=== PATIENT | female | born 1980 | race Caucasian/White ===

== ENCOUNTER 2020-04-30 18:20 | Emergency (ER) | payer MEDICAID, SELFPAY ==
[2020-04-30 18:34] VITALS: BP 162/105; PULSE 102; RESP 16; TEMP 37; O2SAT 97
--- NOTE | 2020-04-30 18:45 | DI.RAD_ITS ---
EXAM: XR WRIST LT COMPLETE CLINICAL HISTORY: Pain, swelling, atraumatic TECHNIQUE: COMPARISON: No exams were available for comparison FINDINGS: Three views were obtained. There may be mild subluxation the 1st metacarpal base from the greater mu ltangular, please correlate clinically. No evidence of fracture. IMPRESSION: RADIATION DOSE DELIVERED: Total DLP
--- NOTE | 2020-04-30 18:45 | DI.RAD_ITS ---
EXAM: XR HAND LT COMPLETE CLINICAL HISTORY: Pain, swelling, atraumatic TECHNIQUE: COMPARISON: No exams were available for comparison FINDINGS: Three views were obtained. With there is question of a mildly subluxed 1st metacarpal at the greater multangular 1st metacarpal joint, please correlate regarding any prior ligamentous injury. No acute fracture seen. IMPRESSION: RADIATION DOSE DELIVERED: Total DLP
--- NOTE | 2020-04-30 18:56 | W.ED.GENAD ---
Discharge Plan Disposition Patient Disposition: HOME Condition: Stable Discharge Details Clinical Impression: Hand pain, left Primary Care Provider: Esvin Kowalski ED Provider: Alhaji Hoffman Home Meds and New Rx's Prescriptions: New cephalexin [Keflex] 250 mg capsule 250 mg PO QID 10 Days Qty: 40 RF: 0 naproxen [Naprosyn] 500 mg tablet 500 mg PO BID PRN10 Days RF: 0 Continued fluoxetine [Prozac Weekly] 90 MG capsule,delayed release(DR/EC) 90 mg PO DIRECTED RF: 0 Discharge Instructions Additional Instructions: Your x-rays were unremarkable, your inflammatory markers were slightly elevated. It is unclear exactly what is causing your symptoms and therefore very close outpatient follow-up is necessary. Wear splint until reevaluation with orthopedics. Rest, elevate, cool and/or warm compresses every 2 hours for 20 minutes. Keflex and Naprosyn as directed. Please watch for new or worsening symptoms and return to the ER for any concerns. I personally spoke with our orthopedic provider bus transportation manager, we discussed your case, and came up with this discharge plan together. He is going to personally call you tomorrow to check in and discuss further treatment and care. Referrals: Yariel Mckeon MD [ [facility] STAFF PHYSICIAN] - Medical Decision Making This is a 39-year-old female who is right-hand dominant presenting with left hand pain and swelling. This is an interesting presentation as there is no injury, no break in the skin, and no real change in her daily activities. She is afebrile, denies rash anywhere else on her body, no other joint involvement. Clinically this certainly could be a tendinitis however diagnosis of compartment syndrome, tenosynovitis, septic joint, necrotizing fasciitis, etc. are all on the differential. I do believe that they are likely lower in suspicion given the presentation of nearly 6 days, being afebrile, and no obvious cellulitis. I did discuss the case with Dr. Dykes. Will obtain CBC, CRP, x-ray of wrist and hand, sed rate, CRP. Initial work-up reveals a white count that is slightly elevated at 11.38. Absolute neutrophils 7.15. ESR 38, CRP 2.7. X-ray of left hand and wrist read by virtual radiology as ligamentous laxity base of thumb, uncertain chronicity. Apparent laxity first CMC articulation. Dislocation not excludable. Clinical correlation requested. Discussed the case with Dr. Mckeon. We discussed her case and work-up. Mild nonspecific leukocytosis, elevated inflammatory markers. We discussed x-ray findings and he felt as though given her profession, this is likely baseline given. He felt as though given the duration of her symptoms diagnosis of necrotizing fasciitis, compartment syndrome, general synovitis, are very unlikely. He questions diagnosis of neuritis. His recommendations at this time are to initiate IV antibiotics such as Ancef, IV Toradol, sent home with prescription of p.o. Keflex and an NSAID. He recommends splinting, volar neutral position and I will CC him on this note, he will contact the patient personally tomorrow. Patient given IV Toradol and Ancef. Upon reevaluation she reports that her pain went from an 8 down to a 4 out of 5 with the Toradol. Using 3 inch Ortho-Glass, I placed the patient in a volar neutral position splint. She tolerated well and reports that this feels very comfortable. She remains neuro, vascular, tendon intact status post splint application as examined by me. We discussed signs and symptoms of diagnosis such as compartment syndrome, necrotizing fasciitis, gingivitis, etc. and the importance of returning immediately to the ER. Otherwise she will await the phone call tomorrow and follow the instructions given by Dr. Mckeon. Upon discharge patient has no additional questions or concerns. Lab Data Lab results reviewed: Yes I reviewed the patient's lab results. Lab results narrative: Laboratory Tests Range/Units 04/30/20 04/30/20 19:06 19:06 WBC (4.4-10.8) 10^3/uL 11.38 H RBC (3.93-5.22) 10^6/uL 4.39 Hgb (11.2-15.7) g/dL 13.7 Hct (36.0-46.0) % 41.1 MCV (80-95) fL 93.6 MCH (27.0-33.0) pg 31.2 MCHC (32.0-36.0) % 33.3 RDW (11.7-14.6) % 12.3 Plt Count (130-400) 10^3/uL 246 MPV (8.0-11.0) fL 10.7 Immature Gran % 0.3 Neutrophils % 62.8 Lymphocytes % 24.4 Monocytes % 9.1 Eosinophils % 2.9 Basophils % 0.5 Nucleated RBC % % 0 Absolute Neutrophils (1.2-6.7) 10^3/uL 7.15 H Absolute Lymphocytes (1.2-3.4) 10^3/uL 2.78 Absolute Monocytes (0.1-0.8) 10^3/uL 1.04 H Absolute Eosinophils (0.0-0.7) 10^3/uL 0.33 Absolute Basophils (0.0-0.2) 10^3/uL 0.06 ESR (0-20) mm/hr 38 H Sodium (136-145) mmol/L 138 Potassium (3.5-5.1) mmol/L 3.3 L Chloride (98-107) mmol/L 102 Carbon Dioxide (21.0-32.0) mmol/L 27.1 Anion Gap (3-11) mmol/L 8.9 BUN (7-18) mg/dL 11 Creatinine (0.55-1.02) mg/dL 0.70 Estimated GFR/1.73 m2 (mL/min/1.73m2) >= 60.00 Glucose (74-106) mg/dL 98 Calcium (8.5-10.1) mg/dL 8.9 Total Bilirubin (0.2-1.0) mg/dL 0.4 AST (15-37) U/L 29 ALT (14-59) U/L 53 Alkaline Phosphatase (46-116) U/L 79 C-Reactive Protein (0.0-0.3) mg/dL 2.71 H Total Protein (6.4-8.2) g/dL 7.7 Albumin (3.4-5.0) g/dL 3.6 HPI General Mode of arrival: ambulatory. Date/Time Provider Initiated Documentation: 04/30/20 18:31. Limitations to Documentation: no limitations. Information obtained by: patient. HPI Narrative: This is a 39-year-old female who denies any significant past medical history, [id number], presenting with left hand pain and swelling that began 6 days ago. Patient states that this has been atraumatic. 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 She denies fever, rash, joint pain elsewhere on her body. She has had a cyst on the back of her hand for a couple of years but this is not painful. She reports tingling but no numbness. The pain began on Sunday, began to resolve over the next couple of days, but has significantly worsened over the past 24 hours. Now her fingers are held in flexion and she cannot fully extend them. She has never had anything like this happen before. Related Data Home Medications Medication Instructions Recorded Confirmed fluoxetine [Prozac Weekly] 90 mg PO DIRECTED 03/27/15 04/30/20 cephalexin [Keflex] 250 mg PO QID 10 Days #40 cap 04/30/20 naproxen [Naprosyn] 500 mg PO BID PRN 10 Days tab 04/30/20 Previous Rx's Medication Instructions Recorded cephalexin [Keflex] 250 mg PO QID 10 Days #40 cap 04/30/20 naproxen [Naprosyn] 500 mg PO BID PRN 10 Days tab 04/30/20 Allergies Allergy/AdvReac Type Severity Reaction Status Date / Time No Known Allergies Allergy Unverified 04/30/20 18:37 General Stated Complaint: Orthopedic BRAN: 3 Review of Systems Constitutional Constitutional: Denies fatigue, Denies fever(s) and Denies weakness ENT Ears, Nose, Mouth, and Throat: Denies neck pain Cardiovascular Cardiovascular: Denies chest pain and Denies dyspnea Respiratory Respiratory: Denies dyspnea Gastrointestinal Gastrointestinal: Denies abdominal pain, Denies nausea and Denies vomiting Musculoskeletal Musculoskeletal: Denies back pain, Reports arthralgias, Reports joint swelling, Reports limited range of motion, Denies neck pain, Denies numbness and Reports tingling Integumentary/Breasts Skin/Breast: Reports erythema Neurologic Neurologic: Denies numbness, Reports tingling and Denies weakness Endocrine Endocrine: Denies fatigue Hematologic/Lymphatic Hematologic/Lymphatic: Denies easy bleeding and Denies easy bruising [facility] Social History Smoking/Tobacco Use Status: Former Tobacco Use Alcohol Intake: current Alcohol Intake frequency: holidays/special occasions only Drug use: Never Substance use type: does not use Do you feel safe at home: Yes Do you feel safe in your relationship?: Yes Exam Const General: cooperative, healthy appearing, comfortable and no acute distress Orientation: alert and awake [facility] Head: normal to inspection, normocephalic and atraumatic Face and sinus: normal facial exam Mouth: moist mucous membranes Eyes Conjunctivae: conjunctivae normal Sclera: sclerae normal Neck Neck: normal visual inspection, full ROM, trachea midline and supple Resp Effort & Inspection: normal respiratory effort and able to speak in complete sentences Cardio Rate: regular rate Rhythm: regular rhythm Skin Lesions: no lesions Neuro General: patient alert, patient awake, moves all extremities and no focal motor deficits Cognition: normal cognition Speech: speech normal Motor: muscle tone normal throughout and strength 5/5 throughout Sensory Exam: no sensory deficits noted Extrem Right upper extremity: normal to inspection, full ROM and normal capillary refill Other: Left wrist ventral aspect with diffuse mild discomfort, discoloration that would be consistent with ecchymosis, and swelling. Patient has full range of motion in her wrist but it is held in a slight flexed position for comfort. There is no obvious point tenderness, induration, fluctuance, erythema. Normal radial pulse. Thumb is unremarkable, without discomfort. Normal capillary refill, full range of motion. Digits 2 through 5 are held in a fixed moderate flexed position. She is not able to make a full fist or fully extend his fingers. She has increased pain with both passive and active movement. Normal capillary refill in all digits. There is mild swelling to the dorsum of the hand that does extend into the digits. There is mild erythema over the second and third MCP joints. Mild warmth. Skin is intact. There is no induration or fluctuance. Patient does have a what appears to be ganglion cyst along the dorsal aspect proximal medial hand. Psych Appearance: grossly normal Mental Status: mental status grossly normal Course Vital Signs Vital signs: Vital Signs Temperature 37.0 C 04/30/20 18:34 Pulse 102 H 04/30/20 18:34 Respiratory Rate 16 04/30/20 18:34 Blood Pressure 162/105 H 04/30/20 18:34 Pulse Oximetry 97 04/30/20 18:34 Temperature 37.0 C 04/30/20 18:34 Temperature Source Skin 04/30/20 18:34 Pulse 102 H 04/30/20 18:34 Respiratory Rate 16 04/30/20 18:34 Respiratory Effort Non-Labored 04/30/20 18:37 Blood Pressure 162/105 H 04/30/20 18:34 Blood Pressure Position Sitting 04/30/20 18:34 Pulse Oximetry 97 04/30/20 18:34 Oxygen Delivery Method Room Air 04/30/20 18:34 Oxygen Flow Rate 0 04/30/20 18:34 Pain Level 5 04/30/20 18:34
[2020-04-30 19:13] LABS: Abs Immature Grans 0.03 10^3/uL (0.0-0.06); Absolute Basophil Count 0.06 10^3/uL (0.0-0.2); Absolute Eosinophil Count 0.33 10^3/uL (0.0-0.7); Absolute Lymphocyte Count 2.78 10^3/uL (1.2-3.4); Absolute Neutrophil Count 7.15 10^3/uL (1.2-6.7); Basophils % 0.5; Eosinophils % 2.9; HCT 41.1 % (36.0-46.0); HGB 13.7 g/dL (11.2-15.7); Immature Grans % 0.3; Lymphocytes % 24.4; MCH 31.2 pg (27.0-33.0); MCHC 33.3 % (32.0-36.0); MCV 93.6 fL (80-95); MPV 10.7 fL (8.0-11.0); Monocytes % 9.1; Neutrophils % 62.8; Nucleated RBC 0 %; Platelet Count 246 10^3/uL (130-400); RBC 4.39 10^6/uL (3.93-5.22); RDW 12.3 % (11.7-14.6); RDW-SD 42.5 fL; WBC 11.38 10^3/uL (4.4-10.8)
[2020-04-30 19:14] LABS: Absolute Monocyte Count 1.04 10^3/uL (0.1-0.8)
[2020-04-30 19:40] LABS: ALT 53 U/L (14-59); AST 29 U/L (15-37); Albumin 3.6 g/dL (3.4-5.0); Alkaline Phosphatase 79 U/L (46-116); Anion Gap 8.9 mmol/L (3-11); BUN 11 mg/dL (7-18); Bilirubin, Total 0.4 mg/dL (0.2-1.0); C-Reactive Protein 2.71 mg/dL (0.0-0.3); CO2 27.1 mmol/L (21.0-32.0); Calcium 8.9 mg/dL (8.5-10.1); Chloride 102 mmol/L (98-107); Glucose 98 mg/dL (74-106); Potassium 3.3 mmol/L (3.5-5.1); Sodium 138 mmol/L (136-145); Total Protein 7.7 g/dL (6.4-8.2)
[2020-04-30 19:49] LABS: ESR 38 mm/hr (0-20)
--- NOTE | 2020-04-30 19:49 | DI.VRAD_ITS ---
PROCEDURE INFORMATION: Exam: XR Left Hand Exam date and time: 04/30/2020 7:38 PM Age: 39 years old Clinical indication: Pain; Hand; Left TECHNIQUE: Imaging protocol: XR Left hand. Views: 3 or more views. COMPARISON: No relevant prior studies available. FINDINGS: Bones/joints: There appears to be some ligamentous laxity at the base of the thumb, CMC articulation Soft tissues: Normal. IMPRESSION: Ligamentous laxity base of the thumb, uncertain chronicity. Dictated and Authenticated by: Monique Garcia MD. Ordering:TAI Mane MD
--- NOTE | 2020-04-30 19:53 | DI.VRAD_ITS ---
PROCEDURE INFORMATION: Exam: XR Left Wrist Exam date and time: 04/30/2020 7:39 PM Age: 39 years old Clinical indication: Pain; Wrist; Left TECHNIQUE: Imaging protocol: XR Left wrist. Views: 3 or more views. COMPARISON: No relevant prior studies available. FINDINGS: Bones/joints: There appears to be some ligamentous laxity at the level of the 1st CMC articulation. Dislocation not excludable. No evidence for fracture. Soft tissues: Normal. IMPRESSION: Apparent laxity 1st CMC articulation. Dislocation not excludable. Clinical correlation requested . Dictated and Authenticated by: Monique Garcia MD. Ordering:TAI Mane MD
[2020-04-30] MEDS: Ketorolac 30 MG/ML VIAL IVP (20:37)
[2020-04-30 21:39] VITALS: BP 142/70; PULSE 87; RESP 16; TEMP 37; O2SAT 97
== END 2020-04-30 21:39 | disposition home or self-care (01) ==
PROVIDERS: Emergency Provider Physician Assistant; PCP Family Medicine
DX: M79.642 Pain in left hand (principal); R79.82 Elevated C-reactive protein (CRP); R70.0 Elevated erythrocyte sedimentation rate
CPT/HCPCS: 29125; 36415; 80053; 81025; 85652; 96365; 96375; 99284; 73110; 73130; 85025; 86140; J0690; J1885

== ENCOUNTER 2020-06-03 06:05 | Day surgery (SDC) | payer MEDICAID, SELFPAY ==
[2020-06-03 06:07] VITALS: BP 133/90; PULSE 89; RESP 20; TEMP 36.5; O2SAT 97
[2020-06-03] MEDS: Lactated Ringers 1,000 ML 100 ML IV (06:38)
--- NOTE | 2020-06-03 07:14 | PDOC.DSDIS_ITS ---
Discharge Plan Disposition Patient Disposition: HOME Condition: Stable Discharge Details Reason For Visit: Left wrist cyst removal Attending Provider: Yariel Mckeon Primary Care Provider: Esvin Kowalski Home Meds and New Rx's Prescriptions: New ibuprofen 800 mg tablet 800 mg PO BID PRN (Reason: pain, moderate) Qty: 20 RF: 0 oxycodone 5 mg tablet 5 - 10 mg PO Q4H PRN (Reason: moderate to severe pain) Qty: 7 RF: 0 Continued fluoxetine [Prozac Weekly] 90 MG capsule,delayed release(DR/EC) 90 mg PO DIRECTED RF: 0 Discharge Instructions Additional Instructions: Surgery: Left wrist dorsal ganglion cyst removal Activity: Gentle use of wrist and hand for at least 1 to 2 weeks. Advance to comfort/tolerance. A therapy prescription will be provided separately in the office at follow-up if needed. Prescriptions: Ibuprofen 800 mg take 1 every 12 hours with a meal as needed for moderate pain Oxycodone 5 mg take 1-2 every 4-6 hours as needed for severe pain You may use [id number] Tylenol (acetaminophen) as needed for mild pain. These pain medications may be taken all at once or in different combinations as needed. Also, recommend Colace (docusate) as a stool softener as surgery and pain medicine cause constipation. Dressings: Loosen/adjust the Otf compressive wrap as needed. Leave dressing in place for 2-3 days. May then remove and leave open to air or cover incisions with Band-Aids. There are sticky Steri-Strips underneath the gauze. These may be left on until they fall off or removed after the first shower. May shower after 5 days. Follow-up: 10-[address] Mckeon Let us know right away if you develop any redness, drainage, fevers, chest pain, or trouble breathing. Do not drink alcohol or drive for at least 24 hours after anesthesia. Please call the office during business hours with any questions or concerns. Referrals: Yariel Mckeon MD [ [facility] STAFF PHYSICIAN] - Discharge Orders Discharge Orders: Discharge Order (Routine); Ordered 06/03/20 Ordered By: Yariel Mckeon DS: Diagnosis Discharge Diagnosis (1) Dorsal wrist ganglion: Status: Acute
[2020-06-03] MEDS: Sodium Bicarbonate 50 MEQ/50 ML VIAL (07:49)
--- NOTE | 2020-06-03 08:31 | W.PM.OP ---
Date of service: 06/03/20 Time of Service: 08:31 Operative Note Operative Note DATE OF PROCEDURE: 06/03/20 PRE-OP DIAGNOSIS: Left wrist dorsal ganglion cyst POST-OP DIAGNOSIS: same PROCEDURE: Left wrist excision dorsal ganglion cyst SURGEON: Yariel Mckeon PROFESSIONAL TUTOR: Joelle Baires ANESTHESIA: MAC and local ESTIMATED BLOOD LOSS: 3 PATHOLOGY: none sent TOURNIQUET TIME: 0 COMPLICATIONS: None Patient was transported to: PACU Patient's condition: stable Indications: Please see complete medical record for details. Procedure Description: In the operating room, monitored anesthesia care was induced. The patient was positioned supine on the operating room table. All bony prominences were well-padded. Preoperative antibiotics were omitted for clean hand surgery. The left hand and wrist was prepped and draped in the usual sterile fashion. Local anesthesia was infiltrated about the surgical site containing 9 cc of 1% lidocaine with epinephrine and 1 cc of sodium bicarbonate. The correct patient, procedure, and side of the procedure were all verified prior to incision. A small longitudinal approach was centered directly over the nearly central mid dorsal wrist ganglion cyst. Using a combination of blunt and sharp dissection all margins of the cyst were exposed. Sensory nerve was protected and gently retracted radially. The stalk traveled deeply in the wound in the direction of the scapholunate joint. It was also adjacent to 1 of the extensor carpi radialis tendons. The stalk was incised and thick translucent fluid expressed. The ganglion cyst capsule was then removed under bipolar cautery. The wound was irrigated with normal saline. The cyst had been removed in entirety. There were no abnormal or concerning features with the of this typical ganglion cyst so it was not sent for pathology. Appropriate hemostasis was achieved. An additional 3 cc of 1% lidocaine with epinephrine was infiltrated about the surgical incision margins. The wound was again irrigated with normal saline. Subcutaneous tissue was closed using 3-0 Monocryl in a buried interrupted fashion. Steri-Strips were applied over the incision to Mastisol, which was covered with Xeroform dry 4 x 4 gauze and the wrist and hand was gently compressed with an Otf bandage. The patient awoke from anesthesia without complication and was transferred to the recovery room in a stable condition.
[2020-06-03] MEDS: oxyCODONE 5 MG TAB PO ×2 (08:32→08:49)
[2020-06-03 08:45] VITALS: BP 126/76; PULSE 74; RESP 16; TEMP 36.4; O2SAT 100
== END 2020-06-03 09:18 | disposition home or self-care (01) ==
PROVIDERS: PCP Family Medicine; Visit Provider Student in an Organized Health Care Education/Training Program
PROC: (CPT 25111; principal; 2020-06-03 07:30)
DX: M67.432 Ganglion, left wrist (principal)
CPT/HCPCS: 25111

== ENCOUNTER 2023-10-01 10:56 | Outpatient (REF) | payer MEDICAID, SELFPAY ==
[2023-10-02 13:00] LABS: Chlamydia Result Negative (Negative); GC Result Negative (Negative)
== END 2023-10-01 10:57 | disposition home or self-care (01) ==
LOC: LBN 10:56
PROVIDERS: PCP Family Medicine; Visit Provider Advanced Practice Midwife
DX: Z11.3 Encounter for screening for infections with a predominantly sexual mode of transmission (principal)
CPT/HCPCS: 87491; 87591

== ENCOUNTER 2023-11-19 09:47 | Outpatient (REF) | payer MEDICAID, SELFPAY ==
--- NOTE | 2023-11-19 09:00 | PAPFT_PTH ---
PATIENT: Adri Chapman LOC: N U#:[id number] AGE/SX: 43/F ROOM: RE11/19/[address]: Donna Bowman CNM : 1980 BED: DIS: 11/19/2023 SPEC #: [id number] RECD: 11/19/23 13:03 STATUS: DEBBIE LOZANO #: [id number] JUNI: 11/19/23 09:[address]: Donna Bowman DEPT: [facility], 1928–1983 Cytology RECD BY: Nini Ramon ENTERED: 11/19/23 13:03 SP TYPE: PAPFT OTHR DR: Esvin Kowalski Tissues: 1 - CX/ENDOCX FOR PAP SMEARS Procedures: PAP THIN PREP/U[facility] Screening HPV DNA PROBE Comments: [id number]
== END 2023-11-19 09:48 | disposition home or self-care (01) ==
LOC: LBN 09:47
PROVIDERS: PCP Family Medicine; Visit Provider Advanced Practice Midwife
DX: Z12.4 Encounter for screening for malignant neoplasm of cervix (principal)
CPT/HCPCS: 88142; 87624